=== PATIENT | male | born 1950 | race Caucasian/White ===

== ENCOUNTER → 2024-03-16 16:14 | Outpatient (REF) | payer OTHER, SELFPAY | LOC: RAD 16:14 | PROVIDERS: ATTENDING PHYSICIAN Specialist; FAMILY PHYSICIAN Family Medicine | DX: N20.0 Calculus of kidney (principal); N32.81 Overactive bladder | CPT/HCPCS: 76770 ==

== ENCOUNTER 2024-06-15 12:18 | Day surgery (SDC) | payer OTHER, SELFPAY ==
[2024-06-14 20:38] VITALS: BP 146/80
[2024-06-14 21:00] LABS: % Basophils 0.5 % (0-2); % Eosinophils 2.4 % (0-6); % Immature Granulocytes 0.6 % (0-0.5); % Monocytes 7.1 % (1.7-9.3); % Neutrophils 64.4 % (42.2-75.2); Absolute Basophils 0.1 10^3/uL (0-0.2); Absolute Eosinophils 0.2 10^3/uL (0-0.7); Absolute Immature Granulocytes 0.1 10^3/uL (0-0.05); Absolute Lymphocytes 2.3 10^3/uL (1.2-3.4); Absolute Monocytes 0.7 10^3/uL (0.1-0.6); Hematocrit 43.2 % (39.0-52.0); Hemoglobin 15.2 g/dL (13.0-18.0); Mean Corp Hgb Conc. 35.2 g/dL (33.0-37.0); Mean Corpuscular Hgb 29.2 pg (27.0-31.0); Mean Corpuscular Volume 83.1 fL (80.0-94.0); Mean Platelet Volume 9.9 fL (7.4-10.4); Nucleated Red Blood Cells % 0 % (-); Platelet Count 279 10^3/uL (130-400); Red Cell Dist. Width 12.9 % (11.5-14.5); White Blood Cell Count 9.3 10^3/uL (4.8-10.8)
[2024-06-14 21:16] LABS: ALT (SGPT) 29 U/L (0-50); AST (SGOT) 22 U/L (17-59); Albumin 4.7 g/dl (3.5-5.0); Alkaline Phosphatase 83 U/L (38-126); Blood Urea Nitrogen 18 mg/dl (9-20); Calcium 9.6 mg/dl (8.4-10.2); Carbon Dioxide 24 mmol/L (22-30); Chloride 104 mmol/L (98-107); Glucose 184 mg/dl (70-99); Potassium 4.4 mmol/L (3.5-5.1); Sodium 143 mmol/L (135-145); Total Bilirubin 0.4 mg/dl (0.2-1.3); Total Protein 7.3 g/dl (6.3-8.2); eGFR > 60.00
[2024-06-14 21:17] LABS: Lipase 588 U/L (23-300)
[2024-06-14 21:28] LABS: Urine Albumin Negative (Neg - Trace); Urine Bilirubin Negative (Negative); Urine Character Clear (Clear); Urine Color Yellow; Urine Glucose 3+ (Negative); Urine Ketone Negative (Negative); Urine Leukocyte Negative (Negative); Urine Nitrite Negative (Negative); Urine Occult Blood 3+ (Negative); Urine Specific Gravity 1.015 (<1.030); Urine Urobilinogen Negative (Neg - 1+)
[2024-06-14 21:45] LABS: Urine Bacteria Few (Negative); Urine Red Blood Cell 50-60 /HPF (0-2); Urine White Cell 0-2 /HPF (0-5)
--- NOTE | 2024-06-14 22:36 | ED.GENMED ---
History of Present Illness
<Lisandro Clark MD - Last Filed: 06/14/24 22:39>
General
Chief Complaint: Flank Pain
Source: patient and spouse
Exam Limitations: none
Time Seen by Provider: 06/14/24 22:28
Nursing documentation reviewed up to this point in time: agreed with
History of Present Illness
History of Present Illness:
Patient with history of kidney stones, presents to ED secondary to sudden onset of recurrent left flank/mid back pain, starting this evening while he was at home. Patient reports having had outpatient ultrasound of the kidneys with his urologist in
March of this year, which had revealed multiple kidney stones in his kidneys. Denies fever or chills. Denies trauma. Denies difficulty with urination. Patient states that his pain is similar to what he has experienced in the past secondary to
kidney stones.
Past History
<Lisandro Clark MD - Last Filed: 06/14/24 22:39>
Past History
ED Past Medical History: HTN, Hypercholesterolemia, NIDDM and Other
Social History
Tobacco: Non-smoker
Drug: None
Personal:
Living: with family (Gout)
Review of Systems
<Lisandro Clark MD - Last Filed: 06/14/24 22:39>
Review of Systems
Allergies reviewed?: Yes
All Other Systems: ROS reviewed and negative except as documented in HPI and ROS
Constitutional: Reports no symptoms
ABD/GI: Reports abdominal pain, nausea and vomiting
: Reports flank pain; Denies frequency or difficulty voiding
Skin: Reports no symptoms
Neurological: Reports no symptoms
Phy Exam
<Lisandro Clark MD - Last Filed: 06/14/24 22:39>
Physical Exam
Physical Exam:
Physical Exam
General: mild painful distress, not acutely ill. afebrile
Head: nc/at. eomi
Neck: supple. no meningeal signs.
Abdomen: normal bowel sounds. not tender. no cva tenderness
Neuro: alert and oriented. no focal neurological deficits
Skin: no rash
Psychiatric: well kept. interactive and cooperative
Extremities: no edema. no calf tenderness.
Course
<Lisandro Clark MD - Last Filed: 06/14/24 22:39>
Orders/Labs/Results
Orders:
Orders
06/14/24 20:52
Complete Blood Count/With Diff Urgent
Comprehensive Metabolic Panel Urgent
Lipase Urgent
06/14/24 21:23
Urinalysis Reflex To Culture Urgent
Date Specimen was Collected: 06/14/24
Time Specimen was Collected: 20:43
Urine Microscopic Reflex Cult Urgent
06/14/24 22:28
CT Abd/pel Without Iv Or Oral Urgent
Comment:
Reason For Exam: left flank/midback pain
06/14/24 22:29
Ibuprofen [Motrin] 400 mg PO NOW STA
Ondansetron Orally Disint [Zofran Odt (Orally Disintegrating)] 4 mg PO NOW STA
06/14/24 22:32
Ketorolac [Toradol] 15 mg .ROUTE .STK-MED ONE
Ketorolac [Toradol] 15 mg IV NOW STA
Ondansetron Injectable [Zofran] 4 mg .ROUTE .STK-MED ONE
Ondansetron Injectable [Zofran] 4 mg IV NOW STA
06/15/24 00:21
Ketorolac [Toradol] 15 mg IV NOW STA
Ondansetron Injectable [Zofran] 4 mg IV NOW STA
06/15/24 01:53
0.9% Sodium Chloride 1000 ml [Nss] 1,000 ml IV 500 mls/hr
HYDROmorphone [Dilaudid] 0.5 mg IV NOW STA
Metoclopramide [Reglan] 10 mg IV NOW STA
06/15/24 07:17
HYDROmorphone [Dilaudid] 0.5 mg .ROUTE .STK-MED ONE
HYDROmorphone [Dilaudid] 0.5 mg IV NOW STA
06/15/24 07:20
0.9% Sodium Chloride 1000 ml [Nss] 1,000 ml IV 125 mls/hr
HYDROmorphone [Dilaudid] 0.5 mg IV Q3HPRN PRN
Abnormal Lab Results
06/14/24 06/14/24
20:52 21:23
Abs Immat Gran (auto) 0.1 H 10^3/uL
(0-0.05)
Absolute Monos (auto) 0.7 H 10^3/uL
(0.1-0.6)
Immature Gran % 0.6 H %
(0-0.5)
Glucose 184 H mg/dl
(70-99)
Lipase 588 H U/L
(23-300)
Ur Occult Blood Reflex 3+ A
(Negative)
Urine RBC 50-60 A /HPF
(0-2)
Urine Bacteria (Reflex) Few A
(Negative)
Urine Glucose 3+ A
(Negative)
06/14/24 20:52
06/14/24 20:52
Vital Signs
Initial and Last Documented VS:
Initial Vital Signs
Temp Pulse Resp BP Pulse Ox
98.2 F 96 16 146/80 98
06/14/24 20:38 06/14/24 20:38 06/14/24 20:38 06/14/24 20:38 06/14/24 20:38
Last Documented Vital Signs
Temp Pulse Resp BP Pulse Ox
98.0 F 91 16 142/76 95
06/15/24 06:28 06/15/24 06:28 06/15/24 06:28 06/15/24 06:28 06/15/24 06:28
<Carla R. Dale, DO - Last Filed: 06/15/24 07:22>
Orders/Labs/Results
Orders:
Orders
06/14/24 20:52
Complete Blood Count/With Diff Urgent
Comprehensive Metabolic Panel Urgent
Lipase Urgent
06/14/24 21:23
Urinalysis Reflex To Culture Urgent
Date Specimen was Collected: 06/14/24
Time Specimen was Collected: 20:43
Urine Microscopic Reflex Cult Urgent
06/14/24 22:28
CT Abd/pel Without Iv Or Oral Urgent
Comment:
Reason For Exam: left flank/midback pain
06/14/24 22:29
Ibuprofen [Motrin] 400 mg PO NOW STA
Ondansetron Orally Disint [Zofran Odt (Orally Disintegrating)] 4 mg PO NOW STA
06/14/24 22:32
Ketorolac [Toradol] 15 mg .ROUTE .STK-MED ONE
Ketorolac [Toradol] 15 mg IV NOW STA
Ondansetron Injectable [Zofran] 4 mg .ROUTE .STK-MED ONE
Ondansetron Injectable [Zofran] 4 mg IV NOW STA
06/15/24 00:21
Ketorolac [Toradol] 15 mg IV NOW STA
Ondansetron Injectable [Zofran] 4 mg IV NOW STA
06/15/24 01:53
0.9% Sodium Chloride 1000 ml [Nss] 1,000 ml IV 500 mls/hr
HYDROmorphone [Dilaudid] 0.5 mg IV NOW STA
Metoclopramide [Reglan] 10 mg IV NOW STA
06/15/24 07:17
HYDROmorphone [Dilaudid] 0.5 mg .ROUTE .STK-MED ONE
HYDROmorphone [Dilaudid] 0.5 mg IV NOW STA
06/15/24 07:20
0.9% Sodium Chloride 1000 ml [Nss] 1,000 ml IV 125 mls/hr
HYDROmorphone [Dilaudid] 0.5 mg IV Q3HPRN PRN
Abnormal Lab Results
06/14/24 06/14/24
20:52 21:23
Abs Immat Gran (auto) 0.1 H 10^3/uL
(0-0.05)
Absolute Monos (auto) 0.7 H 10^3/uL
(0.1-0.6)
Immature Gran % 0.6 H %
(0-0.5)
Glucose 184 H mg/dl
(70-99)
Lipase 588 H U/L
(23-300)
Ur Occult Blood Reflex 3+ A
(Negative)
Urine RBC 50-60 A /HPF
(0-2)
Urine Bacteria (Reflex) Few A
(Negative)
Urine Glucose 3+ A
(Negative)
06/14/24 20:52
06/14/24 20:52
Vital Signs
Initial and Last Documented VS:
Initial Vital Signs
Temp Pulse Resp BP Pulse Ox
98.2 F 96 16 146/80 98
06/14/24 20:38 06/14/24 20:38 06/14/24 20:38 06/14/24 20:38 06/14/24 20:38
Last Documented Vital Signs
Temp Pulse Resp BP Pulse Ox
98.0 F 91 16 142/76 95
06/15/24 06:28 06/15/24 06:28 06/15/24 06:28 06/15/24 06:28 06/15/24 06:28
<Carla Dale DO - Last Filed: 06/15/24 07:22>
*Radiology
Radiology exam reviewed: radiology read reviewed (CAT scan shows 3 mm stone proximal left ureter with mild hydronephrosis)
*Pulse Oximetry
Patient hypoxic: no
*Critical Care Note
Total Time (30-74mins, 75-104mins- exclusive of procedures): Not Applicable
<Carla Dale DO - Last Filed: 06/15/24 07:22>
Update Note
Update Note:
06/15/2024 0023 AM
CAT scan shows 3 mm stone proximal left ureter with mild hydronephrosis and mild perinephric fat stranding.
Patient had been comfortable and pain-free after small IV dose of Toradol and Zofran. Pain and nausea have since returned.
Will give an additional dose of Toradol 15 mg, Zofran 4 mg and continue to observe.
Labs are reassuring. Normal renal function. Normal white blood cell count.
Urinalysis positive for microscopic blood but no evidence of infection.
06/15/2024 0155 AM
Patient afforded moderate improvement in pain and nausea after additional dose of Toradol and Zofran but pain, nausea, dry heaves have since returned.
Will initiate IV fluids, given IV dose of Reglan and and Dilaudid and continue to observe.
If he continues with recurrent pain will likely require hospitalization and will discuss with urology at that point.
06/15/2024 0721 AM
Patient continues to have recurrent renal colic requiring repeated doses of IV Dilaudid.
Case discussed with Dr. Griggs. Will maintain n.p.o. status and he will plan to take the patient to the OR today. Will continue to observe in the ED.
ED Attending Note
<Lisandro Clark MD - Last Filed: 06/14/24 22:39>
-
Portions of this chart may have been created with voice recognition software.� Occasional wrong word or��sound alike� substitutions may have occurred due to the inherent limitations of voice recognition software.
Discharge Plan
Departure
Patient Disposition: OR
Date of Disposition: 06/15/24
Time of Disposition: 07:21
Admit to doctor: Ruenes
Presentation/result/management discussed w/ accepting MD/DO: urology
Discharge Problem:
Calculus of proximal right ureter, intractable renal colic
Prescriptions:
No Action
Atorvastatin
1 tab PO DAILY
multivitamin [Daily Multiple] 1 EACH tablet
1 ea PO DAILY
aspirin 81 MG tablet,delayed release (DR/EC)
81 mg PO DAILY
lisinopril 10 MG tablet
10 mg PO DAILY
allopurinol 300 MG tablet
300 mg PO DAILY
docosahexaenoic acid-epa 1 CAP capsule
1 cap PO DAILY
sitagliptin phos-metformin [Janumet] 1 EACH tablet
1 ea PO BID
dapagliflozin propanediol [Farxiga] 10 MG tablet
10 mg PO DAILY
Referrals:
Lalit Waggoner MD [Family Provider] -
Interventions
Interventions:
*General Assessment Last Done: 06/14/24 22:23
UA-Czubog-Swrgtpsnze Assessment Last Done: 06/14/24 22:23
ED-Male Genitourinary Assessment Last Done: 06/14/24 22:24
Discharge Date and Time
Print Language: YORUBA
[2024-06-14] MEDS: ZOFRAN 4 MG IV (22:39)
[2024-06-14] MEDS: TORADOL 15 MG IV (22:39)
[2024-06-15] VITALS (11 sets, daily range): BP systolic 114–143; BP diastolic 72–81; BMI 30.8
[2024-06-15] MEDS: ZOFRAN 4 MG IV (00:29)
[2024-06-15] MEDS: TORADOL 15 MG IV (00:29)
[2024-06-15] MEDS: DILAUDID 0.5 MG IV ×3 (02:08→10:06)
[2024-06-15] MEDS: NSS 1000 IV ×2 (02:08→07:26)
[2024-06-15] MEDS: REGLAN 10 MG IV (02:08)
--- NOTE | 2024-06-15 10:06 | EDRN ---
per Dr Roldan - can given dose due at 1020 now
[2024-06-15] MEDS: Pyridium 200 MG PO (13:49)
[2024-06-15] MEDS: FLOMAX 0.4 MG PO (13:50)
== END 2024-06-15 14:57 | disposition home or self-care (01) ==
LOC: PACU 12:18
PROVIDERS: Emergency Medicine; ATTENDING PHYSICIAN Specialist; EMERGENCY PHYSICIAN Emergency Medicine; FAMILY PHYSICIAN Family Medicine
DX: N13.2 Hydronephrosis with renal and ureteral calculous obstruction (principal); Z87.442 Personal history of urinary calculi
CPT/HCPCS: 52356; 74176; 74420; 76000; 80053; 81003; 81015; 82365; 83690; 85025; C1758; C1894